=== PATIENT | male | born 1960 | race Two or more races ===

== ENCOUNTER 2022-01-27 08:21 | Emergency (ER) | payer SELFPAY ==
[~2022-01-27] VITALS: Ht 175.3 cm; Wt 76.2 kg
--- NOTE | 2022-01-27 08:40 | NUR ---
PATIENT REFUSED BLOOD DRAW AND FLUIDS, PATIENT STATES "I DON'T HAVE ANY MEDICAL COMPLAIN"
[2022-01-27] MEDS ORDERED: IV NS 0.9% 1,000 ML BAG IV ONE (09:00)
--- NOTE | 2022-01-27 09:45 | NUR ---
Patient discharged to home in stable condition. Written and verbal after care instructions given. Patient verbalizes understanding of instruction.
[2022-01-27 09:46] VITALS: BP 103/67
== END 2022-01-27 09:46 | disposition home or self-care (01) ==
LOC: ER 08:29
DX: Z00.8 Encounter for other general examination (principal); Z98.890 Other specified postprocedural states; Z60.2 Problems related to living alone
CPT/HCPCS: 82962-TC